=== PATIENT | male | born 2000 | race Two or more races ===

== ENCOUNTER 2024-01-28 14:09 | Emergency (ER) | payer OTHER ==
[~2024-01-28] VITALS: Ht 182.9 cm; Wt 70.3 kg
[2024-01-28] MEDS ORDERED: MORPHINE SULFATE INJ 4 MG/ML DISP.SYRIN ONE (14:45)
[2024-01-28] MEDS: MORPHINE SULFATE INJ 2 MG/ML DISP.SYRIN IM ONE (14:55)
[2024-01-28] MEDS ORDERED: HYDR-3980 PO (15:27)
[2024-01-28] MEDS ORDERED: KETO10TA2 PO (15:27)
[2024-01-28 15:42] VITALS: BP 128/76; TEMP 98.6; O2SAT 98
== END 2024-01-28 15:42 | disposition home or self-care (01) ==
LOC: ER 14:15
DX: S42.022A Displaced fracture of shaft of left clavicle, initial encounter for closed fracture (principal); J45.909 Unspecified asthma, uncomplicated; F17.200 Nicotine dependence, unspecified, uncomplicated; W11.XXXA Fall on and from ladder, initial encounter; Y93.89 Activity, other specified; Y92.89 Other specified places as the place of occurrence of the external cause; Y99.8 Other external cause status
CPT/HCPCS: 99284; 71045; 96372; 73000; J2270